=== PATIENT | female | born 1985 | race Caucasian/White ===

== ENCOUNTER → 2017-10-25 | Outpatient (CLI) | payer OTHER ==
[~2017-10-25] MED LIST: IBUP-1050 PO; MULTTAB58 PO
== END | disposition home or self-care (01) ==
LOC: C.LABSPEC 16:04
PROVIDERS: ATTEND Physician Assistant
DX: Z11.3 Encounter for screening for infections with a predominantly sexual mode of transmission (principal)

== ENCOUNTER → 2017-10-25 | Outpatient (CLI) | payer OTHER | END | disposition home or self-care (01) | LOC: C.PAPS 15:43 | PROVIDERS: ATTEND Physician Assistant | DX: Z12.4 Encounter for screening for malignant neoplasm of cervix (principal) ==

== ENCOUNTER → 2017-11-29 | Day surgery (SDC) | payer OTHER ==
[2017-11-21 12:15] VITALS: Ht 180.3 cm; Wt 78.2 kg
[~2017-11-29] VITALS: Ht 180.3 cm; Wt 78.2 kg
[~2017-11-29] MED LIST changes: +CYAN10005 PO; +FENTANYL CITRATE INJ 50 MCG/1 ML 2 ML VIAL ONE; -IBUP-1050 PO; +LIDOCAINE HCL 2% 2 ML VIAL (20MG/ML) ONE; +MELA1CHW3 PO; +MULT1CHW PO; -MULTTAB58 PO; +PROPOFOL IV EMULSION 10 MG/ML 20 ML VIAL IV ONE; +SODIUM CHLORIDE 0.9% 500ML 500 ML IV ONE
--- NOTE | 2017-11-29 14:12 | Endo History and Physical ---
History & Physical Date of Service: Nov 29, 2017. Chief Complaint: HB Referring Physician: HB History of Present Illness HB Past Surgical History Hx Cardiac Surgery: No Hx Internal Defibrillator: No Hx Pacemaker: No Hx Abdominal Surgery: Yes (LAPRASCOPY WITH LEFT OOPHRECTOMY) Hx of Implantable Prosthesis: No Hx Post-Op Nausea and Vomiting: No Hx Cancer Surgery: No Hx Thoracic Surgery: No Hx Orthopedic: Yes (WRIST RECONSTRUCTIVE SURGERY(TENDONS/NERVES);FINGER ORIF) Hx Urinary Tract Surgery: No Family History None Social History Smoking Status: Never Smoker Hx Substance Use: No Hx Alcohol Use: Yes (SOCIALLY) Allergies Coded Allergies: Adhesives (Verified Allergy, Intermediate, RASH, 11/21/17) BEE STING (Unverified Allergy, Unknown, RASH, 11/21/17) Gluten (Verified Allergy, Unknown, celiac disease, 11/21/17) NO KNOWN DRUG ALLERGIES (Verified Allergy, Unknown, ., 11/21/17) Current Medications Reported Home Medications Medications Dose Route/Sig Max Daily Dose Days Date Category Vitamin B-12 (Cyanocobalamin) Unknown Strength Tab Unknown Dose PO DAILY 11/21/17 Reported Multi + [place]-3 Adult Gum (Multiple Vitamins W/ Minerals) 1 Chw Chw 1 Dose PO QAM 11/21/17 Reported Melatonin Adult Gummies (Melatonin) Unknown Strength Chw Unknown Dose PO HS 11/21/17 Reported Vital Signs Weight (Kilograms): 78.18 Height (Feet): 5 Height (Inches): 11 Physical Exam General Appearance: WD/WN, no apparent distress Respiratory/Chest: Auscultation: breath sounds normal Cardiovascular: Heart Auscultation: RRR Abdomen: Bowel Sounds: normal Inspection & Palpation: soft, non-distended, no tenderness, guarding & rebound Assessment and Plan EGD/Peterson placement
[2017-11-29 14:48] VITALS: TEMP 36.9
--- NOTE | 2017-11-29 15:51 | GI REPORT ---
Procedure Date: 11/29/2017 3:18 PM Procedure: Upper GI endoscopy Indications: Suspected gastro-esophageal reflux disease, Celiac disease, Chronic cough, Sore throat Medicines: Propofol per Anesthesia Complications: No immediate complications. Estimated blood loss: None. Estimated Blood Loss: Estimated blood loss: none. Procedure: Pre-Anesthesia Assessment: - Prior to the procedure, a History and Physical was performed, and patient medications and allergies were reviewed. The patient's tolerance of previous anesthesia was also reviewed. The risks and benefits of the procedure and the sedation options and risks were discussed with the patient. All questions were answered, and informed consent was obtained. Prior Anticoagulants: The patient has taken no previous anticoagulant or antiplatelet agents. ASA Grade Assessment: II - A patient with mild systemic disease. After reviewing the risks and benefits, the patient was deemed in satisfactory condition to undergo the procedure. After obtaining informed consent, the endoscope was passed under direct vision. Throughout the procedure, the patient's blood pressure, pulse, and oxygen saturations were monitored continuously. The scope was introduced through the mouth, and advanced to the second part of duodenum. The upper GI endoscopy was accomplished without difficulty. The patient tolerated the procedure well. Findings: The examined esophagus was normal. The Z-line was regular and was found 41 cm from the incisors. The entire examined stomach was normal. Retained gastric contents are not identified on this exam. The examined duodenum was normal. Biopsies for histology were taken with a cold forceps for evaluation of celiac disease. Estimated blood loss was minimal. Verification of patient identification for the specimen was done by the physician and fire protection engineering technician using the patient's name and medical record number. The cardia and gastric fundus were normal on retroflexion. The middle third of the esophagus was normal. The BRANDON capsule with delivery system was introduced through the mouth and advanced into the esophagus, such that the BRANDON pH capsule was positioned 35 cm from the incisors, which was 6 cm proximal to the GE junction. Suction was applied to the well of the BRANDON pH capsule to suck in the adjacent mucosa of the esophagus using the external vacuum pump set at a minimum vacuum pressure of 550 mmHg for 60 seconds. The BRANDON pH capsule was then deployed by depressing the plunger on top of the handle to advance the locking pin into the mucosa, thereby attaching the capsule to the esophagus. The plunger was then rotated a quarter turn clockwise to release the capsule from the delivery system. The delivery system was then withdrawn. Endoscopy was utilized for probe placement and diagnostic evaluation. Impression: - Normal esophagus. - Z-line regular, 41 cm from the incisors. - Normal stomach. - Normal examined duodenum. Biopsied. - Normal middle third of esophagus. - The BRANDON pH capsule was positioned 35 cm from the incisors, which was 6 cm proximal to the GE junction. Recommendation: - Discharge patient to home. - Advance diet as tolerated. - Continue present medications. - Await pathology results. - Return to GI clinic as previously scheduled. - Study performed off acid suppression. Pt instructed to avoid all PPI,liquid antacids and H-2 blockers. MD Neymar Lofton MD 11/29/2017 3:51:24 PM This report has been signed electronically. Note Initiated On: 11/29/2017 3:18 PM I attest to the content of the Intraoperative Record and orders documented therein, exceptions below
--- NOTE | 2017-11-29 15:56 | Anesthesiology Progress Note ---
Anesthesia Post Op Note Date & Time Nov 29, 2017 at 15:56 Vital Signs Pain Intensity: 0 Vital Signs Past 12 Hours Date Time Temp Pulse Resp B/P (MAP) Pulse Ox O2 Delivery O2 Flow Rate FiO2 11/29/17 15:46 89 18 98/58 (71) 99 Room Air 11/29/17 14:48 36.9 85 18 137/92 (107) 99 Room Air Notes Mental Status: alert / awake / arousable, participated in evaluation Pt Amnestic to Procedure: Yes Nausea / Vomiting: adequately controlled Pain: adequately controlled Airway Patency, RR, SpO2: stable & adequate BP & HR: stable & adequate Hydration State: stable & adequate Anesthetic Complications: no major complications apparent
--- NOTE | 2017-11-29 16:06 | Discharge Instructions ---
Endoscopy Patient Instructions Date / Procedure(s) Performed Nov 29, 2017. EGD Allergy Information Coded Allergies: Adhesives (Verified Allergy, Intermediate, RASH, 11/29/17) BEE STING (Unverified Allergy, Unknown, RASH, 11/29/17) Gluten (Verified Allergy, Unknown, celiac disease, 11/29/17) NO KNOWN DRUG ALLERGIES (Verified Allergy, Unknown, ., 11/29/17) Discharge Date / Findings Nov 29, 2017. EGD with Peterson Medication Instructions Restart Stopped Medication(s): Reported Home Medications Medications Dose Route/Sig Max Daily Dose Days Date Category Vitamin B-12 (Cyanocobalamin) Unknown Strength Tab Unknown Dose PO DAILY 11/21/17 Reported Multi + [place]-3 Adult Gum (Multiple Vitamins W/ Minerals) 1 Chw Chw 1 Dose PO QAM 11/21/17 Reported Melatonin Adult Gummies (Melatonin) Unknown Strength Chw Unknown Dose PO HS 11/21/17 Reported Reported Home Medications Medications Dose Route/Sig Max Daily Dose Days Date Category Vitamin B-12 (Cyanocobalamin) Unknown Strength Tab Unknown Dose PO DAILY 11/21/17 Reported Multi + [place]-3 Adult Gum (Multiple Vitamins W/ Minerals) 1 Chw Chw 1 Dose PO QAM 11/21/17 Reported Melatonin Adult Gummies (Melatonin) Unknown Strength Chw Unknown Dose PO HS 11/21/17 Reported Provider Instructions Activity Restrictions - No exercising or heavy lifting for 24 hours. - Do not drink alcohol the day of the procedure. - Do not drive a car or operate machinery until the day after the procedure. - Do not make any important decisions or sign important papers in 24 hours after the procedure. Following Day: - Return to full activity which may include returning to work/school. Diet Start your diet with liquids and light foods (jello, soup, juice, toast). Then eat your usual diet if not nauseated. Treatment For Common After Affects For mild abdominal pain, bloating, or excessive gas: - Rest - Eat lightly - Lie on right side Follow-Up Information Follow-up with JUNE TORRES as scheduled Anesthesia Information What You Should Know You have had a procedure that required some medicine to reduce anxiety and discomfort. This treatment is called moderate sedation. After receiving the treatment, you may be sleepy, but you will be able to breathe on your own. The effects of the treatment may last for several hours. Follow these instructions along with Activity/Diet recommendations noted above: * Do NOT do anything where dizziness or clumsiness would be dangerous. * Rest quietly at home today, then you can be up and about tomorrow. * Have a responsible person stay with you the rest of today. * You may have had an I.V. today. If so, you may take the dressing off later today. Recommendations Call your doctor if: * Trouble breathing * Continuous vomiting for more than 24 hours * Temperature above 101 degrees * Severe abdominal pain or bloating * Pain not relieved by pain medicine ordered * There is increased drainage or redness from any incision * A large amount of rectal bleeding greater than 2-3 tablespoons. (If you had a polyp/s removed or have hemorrhoids, a small amount of blood - from the rectum is to be expected.) * You have any unanswered questions or concerns. IN THE EVENT OF A SERIOUS EMERGENCY, GO TO THE NEAREST EMERGENCY ROOM Your discharge instructions were prepared by provider Neymar Ruano. Patient Instructions Signature Page June Alcantara Patient (or Guardian) Signature/Date: I have read and understand the instructions given to me by my caregivers. Caregiver/RN/Doctor Signature/Date: The above-named patient and/or guardian has received patient instructions on this date. + Original Patient Signature Page (only) stays with chart. Please make copy for patient.
[2017-11-29 16:14] VITALS: BP 110/53; PULSE 71; O2SAT 100
== END | disposition home or self-care (01) ==
LOC: C.GI 13:59
PROVIDERS: ATTEND Internal Medicine Gastroenterology
DX: R10.12 Left upper quadrant pain (principal); R05 Cough; K90.0 Celiac disease; J02.9 Acute pharyngitis, unspecified; H91.90 Unspecified hearing loss, unspecified ear; Z98.890 Other specified postprocedural states; Z90.721 Acquired absence of ovaries, unilateral; Z91.030 Bee allergy status; Z91.018 Allergy to other foods

== ENCOUNTER 2022-04-04 14:06 | Inpatient (IN) ==
[2022-04-04] MEDS ORDERED: OXYTOCIN 30 UNITS/500 ML BAG IV PRN ×3 (15:30→21:02)
--- NOTE | 2022-04-04 16:01 | History & Physical Report ---
Date of Service April 04, 2022 Assessment & Plan (1) Active labor at term: (2) Hypothyroidism: (3) Celiac disease: (4) Uterine contractions at greater than 20 weeks of gestation: Plan: 37-year-old -0-0-1 at 39 weeks and 4 days of gestation presenting with uterine contractions and cervical change, Vital signs stable afebrile, heart rate reassuring, GBS is negative, Desires epidural for pain now Plan for admit, monitor, labs, epidural for pain per patient request, AROM after epidural and anticipate . Patient understands all and agrees with plan. History of Present Illness Chief Complaint: Contractions Primary Care Provider: NO PCP Patient is a 37-year-old -0-0-1 at 39 weeks and 4 days of gestation who has been feeling contractions since 2 AM this morning. They spaced out during the day and then they came back with more regular pattern and stronger intensity. She denies leakage of fluid or vaginal bleeding. She reports good movements. Her has been complicated by, 1. AMA, genetic screening was negative, 2. Hypothyroidism, on levothyroxine, 3. Celiac disease, 4. Ashkenazi Hinduism ancestry, not carrier of any known genetic disorder, 5. 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 She does not want to miss the oppurtunity of epidural for pain and desires it now. Allergies Allergy/AdvReac Type Severity Reaction Status Date / Time adhesive Allergy Intermediate RASH Verified 02/17/22 13:29 bee venom protein (honey bee) Allergy Unknown RASH Verified 02/17/22 13:29 gluten Allergy Unknown celiac Verified 02/17/22 13:29 disease No Known Drug Allergies Allergy Unknown . Verified 02/17/22 13:29 Home Medications Medication Instructions Recorded Confirmed Type prenat.vits,pearl,[id number] 1 tab PO DAILY 07/23/19 04/04/22 History iron 18 mg tablet 18 mg PO DAILY 11/25/20 04/04/22 History omega-3 fatty acids 1,000 mg 1,000 mg PO DAILY 11/25/20 04/04/22 History capsule levothyroxine 150 mcg tablet 150 mcg PO DAILY #30 tab 01/26/22 04/04/22 Rx Patient History Medical History Acid reflux disease Celiac disease Shelly's thyroiditis Herniated lumbar intervertebral disc Hyperglycemia Hypothyroidism Ovarian cyst Surgical History H/O colonoscopy H/O esophagogastroduodenoscopy H/O wrist surgery History of hand surgery percutaneous fixture of fracture of proximal finger phalanx History of oophorectomy, unilateral [place] teeth extracted Family History Grandmother (Maternal) Cancer Heart disease Father Diabetes Heart disease Depression Hypertension Anxiety Kidney stones Alcohol abuse Grandfather (Paternal) Heart disease Testicular cancer Denies family history of Ovarian cancer Breast cancer Colorectal cancer Social History (Updated 07/15/19 @ 20:00 by Tita Castellon) Smoking Status: Never smoker Second Hand Exposure: No; Hx Alcohol Use: No Hx Substance Use: No Preferred Language: Bhutanese Communication Ability: Impaired Communication Ability 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 Other Information That Helps Us Care for You: No Feels Safe at Home: Yes Safety Concerns: Feels Safe At This Time Physical Activity Frequency: 3-4 Times per Week Assistive Devices: None OB History Full-term in 2019, no complications LAST TURNER History No history of STDs including chlamydia, gonorrhea, herpes. Review of Systems as per Subjective / HPI Physical Exam Constitutional: WD/WN, vitals as above well developed, well nourished and + acute distress (With some of the contractions but not all of them) ENMT: Ears: + hearing impairment Gastrointestinal (Abdomen): normal bowel sounds, soft, nontender, no hepatosplenomegaly (Gravid, Ilia 7 to 8 pounds) Genitourinary: normal external appearance OB Exam Abdomen: + vertex Manual OB Exam: + cervical dilation 4 cm, + cervical effacement 80% and + station -1 OB Exam Monitor Tracing: + external uterine monitor used and + category I Results & Data ([facility]) Vital Signs (Past 12 Hours) Vital Signs Temp Pulse Resp BP 04/04/22 15:20 79 119/76 04/04/22 15:14 37.1 C 79 20 119/76 04/04/22 14:29 88 114/77
[2022-04-04] MEDS: LACTATED RINGER'S 1,000 ML IV PRN ×2 (16:18→17:53)
[2022-04-04 16:20] LABS: Hematocrit (blood only) 38.4 % (37-47); Hemoglobin 12.9 g/dL (12.0-16.0); Mean Corpuscular Hemoglobin 29.3 pg (25-34); Mean Corpuscular Hgb Conc 33.6 g/dL (32-36); Mean Corpuscular Volume 87.3 fL (80-100); Mean Platelet Volume 10.7 fL (7.4-10.4); Platelet Count 194 K/uL (130-400); RDW Coefficient of Variation 13.9 % (11.5-14.5); White Blood Count 10.56 K/uL (4.8-10.8)
[2022-04-04] MEDS ORDERED: fentaNYL citrate 100 MCG/2 ML VIAL ONE (16:30)
[2022-04-04] MEDS ORDERED: SODIUM CHLORIDE 0.9% INJ 10 ML VIAL ONE (16:30)
[2022-04-04] MEDS ORDERED: BUPIVACAINE 0.25% 30 ML VIAL ONE (16:30)
[2022-04-04] MEDS ORDERED: ePHEDrine sulfate 50 MG/ML AMP ONE (16:30)
[2022-04-04] MEDS ORDERED: fentaNYL 2MCG/ML ROPIVACAINE 1.25MG/ML 100 ML BAG EPI ONE (16:31)
[2022-04-04] MEDS ORDERED: ePHEDrine sulfate 50 MG/ML AMP IV PRN (16:34)
[2022-04-04] MEDS ORDERED: NALBUPHINE HCL INJ 10 MG/ML AMP IV PRN (16:34)
[2022-04-04] MEDS ORDERED: fentaNYL 2MCG/ML ROPIVACAINE 1.25MG/ML 100 ML BAG EPI PRN (16:34)
[2022-04-04] MEDS ORDERED: diphenhydrAMINE 50 MG/ML VIAL IV PRN (16:34)
[2022-04-04] MEDS ORDERED: NALOXONE HCL 0.4 MG/1 ML VIAL/CARP IV PRN (16:34)
[2022-04-04] MEDS ORDERED: NALOXONE HCL 1 MG in SODIUM CHLORIDE 0.9% 1000ML 1,000 ML IV PRN (16:34)
[2022-04-04] MEDS ORDERED: ONDANSETRON INJ 2 MG/ML 2 ML VIAL IV PRN (16:34)
--- NOTE | 2022-04-04 17:19 | Anesthesiology Consultation ---
Date of Service April 04, 2022 Assessment & Plan ASA ASA2 Proposed Anesthesia Anesthesia Type: Labor Epidural Risk / Benefits Reviewed With: PT / POA / Parent / Guardian, Accepts Plan and Informed Consent Obtained History Height/Weight Height: 5 ft 11 in Weight: 79.379 kg Allergies Allergy/AdvReac Type Severity Reaction Status Date / Time adhesive Allergy Intermediate RASH Verified 02/17/22 13:29 bee venom protein (honey bee) Allergy Unknown RASH Verified 02/17/22 13:29 gluten Allergy Unknown celiac Verified 02/17/22 13:29 disease No Known Drug Allergies Allergy Unknown . Verified 02/17/22 13:29 Medications Home Medications Medication Instructions Recorded Confirmed Last Taken prenat.vits,pearl,tbf-[id number] 1 tab PO DAILY 07/23/19 04/04/22 04/04/22 11:00 iron 18 mg tablet 18 mg PO DAILY 11/25/20 04/04/22 04/04/22 11:00 omega-3 fatty acids 1,000 mg 1,000 mg PO DAILY 11/25/20 04/04/22 04/04/22 11:00 capsule levothyroxine 150 mcg tablet 150 mcg PO DAILY #30 tab 01/26/22 04/04/22 04/04/22 00:00 Active Medications Generic Name Dose Route Start Last Admin Trade Name Freq PRN Reason Stop Dose Admin Lactated Ringer's 1,000 mls @ 150 mls/hr 04/04/22 15:30 04/04/22 17:14 Lr IV 04/06/22 15:29 150 mls/hr .[id number] PRN Infusion L&D Protocol Protocol Past Medical History Medical History Acid reflux disease Celiac disease Shelly's thyroiditis Herniated lumbar intervertebral disc Hyperglycemia Hypothyroidism Ovarian cyst Exercise / Class Metabolic Activity II 4-5 Yardwork/Stairs/Walk up hill Past Family History Family History Grandmother (Maternal) Cancer Heart disease Father Diabetes Heart disease Depression Hypertension Anxiety Kidney stones Alcohol abuse Grandfather (Paternal) Heart disease Testicular cancer Denies family history of Ovarian cancer Breast cancer Colorectal cancer Past Surgical History Surgical History H/O colonoscopy H/O esophagogastroduodenoscopy H/O wrist surgery History of hand surgery percutaneous fixture of fracture of proximal finger phalanx History of oophorectomy, unilateral [place] teeth extracted Past Anesthesia History No Hx of Anesthesia Complications and No Family Hx of Anesthesia Complications History of PONV No Hx of PONV and No Hx of Motion Sickness Social History Smoking Status: Never smoker Hx Alcohol Use: No Hx Substance Use: No Review of Systems denies fever/cough/ colds/ chest pain/ SOB/ JAIRO denies JAIRO Physical Exam Vital Signs Last Vital Signs Temp 37.1 C 04/04/22 15:14 Pulse 74 04/04/22 17:17 Resp 20 04/04/22 15:14 BP 133/58 L 04/04/22 17:12 Pulse Ox 100 04/04/22 17:17 ENMT Mouth: no TMJ abnormality and no dentition abnormality Thyromental Distance: > or= 3.5 Finger Breadths Mallampati Class: II Neck neck extension not limited Respiratory normal respiratory effort; no respiratory distress Auscultation: lungs clear to auscultation bilaterally Cardiovascular Rate/Rhythm: regular rate and regular rhythm Neurologic moves all extremities Psychiatric Orientation: alert and oriented x 3 Testing Laboratory Results 04/04/22 16:07
--- NOTE | 2022-04-04 18:17 | Obstetrical Progress Note ---
Date of Service April 04, 2022 Assessment & Plan Admission and Anticipated Discharge Date Admission Date: April 04, 2022 Subjective Patient is reevaluated She is comfortable after epidural VSS Afebrile FHR reassuring VE; 6/ 70%/ -1, AROM'ed, clear fluid, small amount Continue to monitor [facility]) Vital Signs (Past 12 Hours) Vital Signs Temp Pulse Resp BP Pulse Ox 04/04/22 18:12 66 100 04/04/22 18:07 65 100 04/04/22 18:05 70 93 04/04/22 18:02 94 H 100 04/04/22 17:59 93 H 110/60 04/04/22 17:57 103 H 100 04/04/22 17:55 65 121/62 04/04/22 17:52 69 100 04/04/22 17:49 74 128/66 04/04/22 17:47 87 100 04/04/22 17:45 71 122/58 L 04/04/22 17:42 73 100 04/04/22 17:39 72 112/74 04/04/22 17:37 76 99 04/04/22 17:35 92 H 108/73 04/04/22 17:32 94 H 100 04/04/22 17:30 74 119/66 04/04/22 17:27 86 99 04/04/22 17:23 93 H 122/66 04/04/22 17:22 91 H 98 04/04/22 17:19 73 125/59 L 04/04/22 17:17 74 100 04/04/22 17:15 66 90 04/04/22 17:12 90 133/58 L 99 04/04/22 17:09 89 126/66 04/04/22 17:07 75 120/59 L 100 04/04/22 17:05 75 128/63 04/04/22 17:03 85 131/70 04/04/22 17:02 74 122/65 99 04/04/22 16:59 83 124/59 L 04/04/22 16:58 84 121/59 L 04/04/22 16:57 84 100 04/04/22 16:56 90 113/58 L 04/04/22 16:53 84 132/67 04/04/22 16:52 107 H 98 06/20/22 16:47 85 99 04/04/22 16:46 91 H 92 04/04/22 16:42 100 H 98 04/04/22 16:36 80 100 04/04/22 15:20 79 119/76 04/04/22 15:14 37.1 C 79 20 119/76 04/04/22 14:29 88 114/77
--- NOTE | 2022-04-04 19:46 | Obstetrical Progress Note ---
Date of Service April 04, 2022 Assessment & Plan Admission and Anticipated Discharge Date Admission Date: April 04, 2022 Subjective Patient is reevaluated. She feels mild contractions but not painful. At this time stable afebrile, heart rate category 1, Contractions every 3 to 5 minutes, Vaginal exam, cervix is 6 to 7 cm dilated, 80% effaced, -1 station Plan to start oxytocin for augmentation, Continue to monitor closely, Anticipate . Results & Data ([facility]) Vital Signs (Past 12 Hours) Vital Signs Temp Pulse Resp BP Pulse Ox 04/04/22 19:42 73 100 04/04/22 19:38 86 110/61 04/04/22 19:37 70 100 04/04/22 19:32 72 99 04/04/22 19:27 71 99 04/04/22 19:23 65 117/64 04/04/22 19:22 64 100 04/04/22 19:17 64 100 04/04/22 19:12 69 99 04/04/22 19:09 75 115/64 04/04/22 19:07 71 100 04/04/22 19:04 74 93 04/04/22 19:02 71 16 100 04/04/22 18:57 68 100 04/04/22 18:53 64 123/69 04/04/22 18:52 71 99 04/04/22 18:47 77 16 100 04/04/22 18:42 83 99 04/04/22 18:38 72 118/69 04/04/22 18:37 70 100 04/04/22 18:32 76 100 04/04/22 18:30 18 04/04/22 18:27 63 100 04/04/22 18:23 78 112/62 04/04/22 18:22 74 100 04/04/22 18:17 65 18 100 04/04/22 18:12 66 100 04/04/22 18:07 65 100 04/04/22 18:05 70 93 04/04/22 18:02 94 H 100 04/04/22 17:59 93 H 18 110/60 04/04/22 17:57 103 H 100 04/04/22 17:55 65 121/62 04/04/22 17:52 69 100 04/04/22 17:49 74 128/66 04/04/22 17:47 87 100 04/04/22 17:45 71 18 122/58 L 04/04/22 17:42 73 100 04/04/22 17:39 72 18 112/74 04/04/22 17:37 76 99 04/04/22 17:35 92 H 108/73 04/04/22 17:32 94 H 100 04/04/22 17:30 74 119/66 04/04/22 17:27 86 99 04/04/22 17:23 93 H 18 122/66 04/04/22 17:22 91 H 98 04/04/22 17:19 73 125/59 L 04/04/22 17:17 74 100 04/04/22 17:15 66 90 04/04/22 17:12 90 133/58 L 99 04/04/22 17:09 89 126/66 04/04/22 17:07 75 18 120/59 L 100 04/04/22 17:05 75 128/63 04/04/22 17:03 85 131/70 04/04/22 17:02 74 18 122/65 99 04/04/22 16:59 83 124/59 L 04/04/22 16:58 84 121/59 L 04/04/22 16:57 84 100 04/04/22 16:56 90 16 113/58 L 04/04/22 16:53 84 132/67 04/04/22 16:52 107 H 98 04/04/22 16:47 85 99 04/04/22 16:46 91 H 92 04/04/22 16:42 100 H 98 04/04/22 16:36 80 100 04/04/22 15:20 79 119/76 04/04/22 15:14 37.1 C 79 20 119/76 04/04/22 14:29 88 114/77
[2022-04-04] MEDS ORDERED: ERYTHROMYCIN OP OINT 1 GM PKT ONE (20:30)
[2022-04-04] MEDS ORDERED: MINERAL OIL 30 ML UDC ONE (20:34)
[2022-04-04] MEDS ORDERED: METHYLERGONOVINE MALEATE 0.2 MG/ML AMP IM ONE (21:02)
[2022-04-04] MEDS ORDERED: BENZOCAINE 20% AER SPR 82.5 GM CAN EXT PRN (21:02)
[2022-04-04] MEDS ORDERED: HYDROCORTISONE ACETATE 25 MG SUPP PR PRN (21:02)
[2022-04-04] MEDS ORDERED: ACETAMINOPHEN 325 MG TAB PO PRN (21:02)
[2022-04-04] MEDS ORDERED: DIPHTHERIA/TETANUS/PERTUSSIS 0.5 ML SYR/VIAL IM ONE (21:02)
[2022-04-04] MEDS ORDERED: MEASLES, MUMPS & RUBELLA VIRUS VIAL SQ ONE (21:02)
[2022-04-04] MEDS ORDERED: bisacodyL 10 MG SUPP PR PRN (21:02)
--- NOTE | 2022-04-04 21:07 | Delivery Summary ---
Vaginal Delivery Summary Date of Service April 04, 2022 Vaginal Delivery Summary Patient was found to be fluid dilated and desire to push she pushed through 2 contractions and delivered the head without difficulty. There was a nuchal cord around the neck x1 which was reduced. The baby was handed off to the mother by mouth and nose were suctioned, the cord was clamped times and delayed cut per patient request. Patient requested the cord not to be cut until normal pulse, which was around 2.5 minutes. Vagina and perineum were checked for lacerations. There was a first-degree periclitoral/periurethral laceration and a small second degree perineal laceration. First the periclitoral area laceration was repaired with 3-0 Vicryl on SH needle. It was extending into the periurethral area. The Doan catheter was inserted to the bladder and the laceration close to urethral opening was repaired with 3-0 Vicryl on SH needle with [id number] stitches x2. It was hemostatic. Then the perineal laceration was repaired with 2-0 Vicryl in a running locked fashion bringing the mucosa together and perineal body muscles together and skin in a subcuticular fashion. History of the vagina was intact. Then the placenta was found to be the vagina, delivered spontaneously intact and complete. Uterus was explored and found to be empty, lower segment was cleared of all clots and debris's, fundus was firm and EBL was 200 mL. Mom and baby tolerated procedure well, the sponge needle instrument count was correct x2. The baby was a viable female infant delivered at 20:39 PM Apgars were 8/9. No complications happened and I was present during whole procedure.
[2022-04-04] MEDS ORDERED: METHYLERGONOVINE MALEATE 0.2 MG/ML AMP ONE (21:09)
[2022-04-05] MEDS: IBUPROFEN 600 MG TAB PO PRN ×2 (04:40→15:00)
[2022-04-05 06:35] LABS: Hematocrit (blood only) 36.5 % (37-47); Mean Corpuscular Hgb Conc 32.9 g/dL (32-36); Mean Corpuscular Volume 88.2 fL (80-100); Mean Platelet Volume 10.7 fL (7.4-10.4); Platelet Count 188 K/uL (130-400); RDW Standard Deviation 45.3 fL (36.4-46.3); Red Blood Count 4.14 M/uL (4.2-5.4); White Blood Count 10.35 K/uL (4.8-10.8)
[2022-04-05] MEDS: oxyCODONE/ACETAMINOPHEN 5mg/325mg TAB PO PRN ×3 (06:45→21:51)
[2022-04-05] MEDS ORDERED: PRENATAL VITAMIN 1 TAB PO SCH (08:00)
[2022-04-05] MEDS ORDERED: FERROUS SULFATE 325 MG TAB PO SCH (08:00)
[2022-04-05] MEDS: DOCUSATE SODIUM 100 MG CAP PO SCH ×2 (08:14→21:51)
--- NOTE | 2022-04-05 08:31 | Obstetrical Progress Note ---
Date of Service April 05, 2022 Subjective Ambulation: ambulating normally Voiding: no voiding problems Diet Tolerance:: regular diet Lochia:: Small Feeding Type:: breast feeding Current Pain Level(1-10): 0 doing well Physical Exam Constitutional WD/WN, vitals as above doing well. no edema. neg Ines's Results & Data ([facility]) Vital Signs (Past 12 Hours) Vital Signs Temp Pulse Pulse Resp BP BP Pulse Ox 04/05/22 07:45 36.8 C 68 18 107/69 97 04/05/22 05:00 36.4 C L 72 16 108/67 98 04/05/22 00:15 36.8 C 80 16 109/69 97 04/04/22 22:46 37.1 C 68 18 116/65 04/04/22 22:42 70 97 04/04/22 22:38 80 125/59 L 04/04/22 22:37 73 98 04/04/22 22:32 73 98 04/04/22 22:27 99 H 98 04/04/22 22:23 71 16 125/71 04/04/22 22:22 71 98 04/04/22 22:17 68 97 04/04/22 22:12 68 97 04/04/22 22:08 73 121/63 04/04/22 22:07 74 99 04/04/22 22:02 76 98 04/04/22 21:57 85 98 04/04/22 21:53 68 16 119/65 04/04/22 21:52 73 97 04/04/22 21:47 71 99 04/04/22 21:42 70 99 04/04/22 21:38 75 16 119/67 04/04/22 21:37 75 99 04/04/22 21:32 86 99 04/04/22 21:27 78 98 04/04/22 21:23 94 H 18 114/70 04/04/22 21:22 88 98 04/04/22 21:17 90 98 04/04/22 21:12 100 H 100 04/04/22 21:08 98 H 18 129/76 04/04/22 21:07 100 H 98 04/04/22 21:02 89 99 04/04/22 20:58 37.1 C 81 16 120/75 04/04/22 20:57 87 99 04/04/22 20:52 91 H 99 04/04/22 20:47 98 H 99 04/04/22 20:42 110 H 99 04/04/22 20:37 84 90 04/04/22 20:36 113 H 91 04/04/22 20:32 121 H 100 Laboratory Results Laboratory Results - last 48 hr 04/04/22 04/04/22 04/05/22 16:07 Unknown 06:08 WBC 10.56 10.35 RBC 4.40 4.14 L Hgb 12.9 12.0 Hct 38.4 36.5 L MCV 87.3 88.2 MCH 29.3 29.0 MCHC 33.6 32.9 RDW Std Deviation 44.0 45.3 RDW Coeff of Ashwin 13.9 14.0 Plt Count 194 188 MPV 10.7 H 10.7 H SARS-CoV-2, RNA, NAAT NEGATIVE
[2022-04-05] MEDS ORDERED: LEVOTHYROXINE SODIUM 150 MCG TABLET PO SCH (09:00)
--- NOTE | 2022-04-05 10:18 | Anesthesia Procedure Note ---
Date of Service April 05, 2022 Anesthesia Post Epidural Note Vital Signs Vital Signs: Temp Pulse Resp BP Pulse Ox 98.2 F 68 18 107/69 97 04/05/22 07:45 04/05/22 07:45 04/05/22 07:45 04/05/22 07:45 04/05/22 07:45 Pain Intensity Lower Abdomen: Pain Intensity: 0 Notes Mental Status: alert / awake / arousable and participated in evaluation Nausea / Vomiting: adequately controlled Pain: adequately controlled Airway Patency, RR, SpO2: stable & adequate BP & HR: stable & adequate Hydration State: stable & adequate Neuraxial Anesthesia: was administered and sensory block is resolving Anesthetic Complications: no major complications apparent and Pt Satisfied with anesthetic care Epidural: Removed without complications and With tip intact
[2022-04-05] MEDS ORDERED: bisacodyL 5 MG TABEC PO SCH (20:00)
== END 2022-04-05 23:02 | disposition home or self-care (01) | DRG 807 ==
LOC: OPB 14:06 → 4S1 14:07 → 4E2 23:36